=== PATIENT | female | born 1955 | race Two or more races ===

== ENCOUNTER 2024-11-20 09:35 | Outpatient (AMB) | payer MEDICARE, MEDICAID, SELFPAY ==
--- NOTE | 2024-11-20 10:02 | PD.ORTHCLVIS ---
Vital signs 11/20/24 10:04 Height 1.5 m Height Method Measured Weight 71.242 kg Weight Measurement Method Standing Scale BMI 31.7 BP 187/109 H Blood Pressure Source Automatic Cuff Blood Pressure Location Right Upper Arm Position Sitting Respiration 18 Pulse 93 Pulse Source Monitor Temp 97.9 F Temp Source Temporal Artery Scan Pulse Oximetry (%) 96 Oxygen Delivery Method Room Air Med/Allergies Allergies & Medications Allergies No Known Drug Allergies Allergy (Verified 11/20/24 10:05) Medication Reconciliation aspirin 81 mg tablet 81 mg PO QDAY 11/20/24 [History Confirmed 11/20/24] chlorthalidone 25 mg tablet 25 mg PO QDAY 11/20/24 [History Confirmed 11/20/24] gabapentin 300 mg capsule 300 mg PO QDAY 11/20/24 [History Confirmed 11/20/24] metformin 500 mg tablet 500 mg PO QDAY 11/20/24 [History Confirmed 11/20/24] metoprolol tartrate 25 mg tablet 25 mg PO QDAY 11/20/24 [History Confirmed 11/20/24] Exam Exam Patient is in no acute distress and is cooperative with the examination today. Breathing is nonlabored. Patient has a normal mood and affect. Bilateral extremities were evaluated and demonstrates sensation intact to light touch. Palpable pedal pulses are present. No significant edema is present. Bilateral hips were examined. The patient has no pain with log roll of the hips. Internal rotation to 30 degrees and external rotation to 30 degrees is painless. Negative FADIR. Right knee was examined today. The right knee is in reasonable alignment. Range of motion from 0-120 degrees. Knee is stable to varus and valgus as well as AP translation with <5mm. Patient has a negative McMurrays. There is no pain with patellofemoral compression and no crepitus noted. The knee is nontender to palpation. Left knee was examined today. The left knee is in varus alignment. Range of motion from 0-115 degrees. Knee is stable to varus and valgus as well as AP translation with <5mm. Patient has a negative McMurrays. There is no pain with patellofemoral compression and no crepitus noted. The knee is tender to palpation medially. X-rays of [facility] were reviewed. These are nonweightbearing films. Demonstrates complete joint space obliteration medially and laterally Assessment and Plan Problem List (1) Arthritis of left knee: Status: Acute Plan: Patient is a 69-year-old female with left knee pain and left knee arthritis. We discussed different treatment options. I would like to see what her hemoglobin A1c is to see if her diabetes is well-controlled. She has failed conservative treatment and we will offer total knee replacement if her A1c is well-controlled. Will also will get weightbearing x-rays Office Procedures GNS Level of Care Nursing/Assessment Patient Status: Initial/New Patient Nursing Assessment/Reassesment: Medication Reconciliation, Update PMH in EMR and Vital Signs Coordination of Care: Complex Care and Chronic Disease 1-5, Education Complex Pt/Fam, Consent,records obtained, informed consent, Lab and Imaging orders, Results/Orders obtained and Staff clarify orders Special Needs: Language special needs New Patient Charge New Patient Point Assignment: 0490 New Patient Point Charge: PLAYGROUND DIRECTOR Level 3 ([id number]) MA Intake Visit Data Collection New Patient or Established: New Patient (never been to [facility]) Reason for Visit:: bilateral knee injection Seen by Clinical Staff ONLY (RN/MA): No Verbal consent obtained for Telemed visit?: No Tracer Clerk Required: Yes PCP or OBGYN visit in last 3 months: Yes Hx Now: No Do You Feel Safe at Home: Yes Authorities Contacted: N/A Questionairres Past Medical History Past Medical History Have you ever been diagnosed with any of the following: Cardiology Problems Hypertension: Yes Respiratory Problems Smoking: No Smoking Cessation Counseling: No Smoking Exposure: No Tobacco Use: No Stomache/Intestinal Problems Obesity: Yes Endocrine Problems Diabetes Mellitus Type 1: Yes Subjective Visit Visit for: new patient and knee Immunization / Flu Flu Vaccine in the Last 12 Months: No Flu Vaccine Exclusion Criteria: No Exclusion Criteria History of Present Illness Chief complaint: bilateral knee injection Date of injury / onset of symptoms: 1.5 years Latrice is a 69-year-old female with left knee pain that has been ongoing for 2 years. She has had 4 injections in the past. She reports that the injections are not working for very long. She uses a cane because she reports her knees feel unstable. She has also tried anti-inflammatories. Personal History Red flag PMH: BMI BMI Counceling provided: Yes Pain Pain level (0-10): 10 Pain duration: all day Pain location: inside (medial), outside (lateral), anterior and posterior Pain quality: sharp, dull and aching Pain timing: night, increases with activity and stairs Associated signs & symptoms: numbness and stiffness Ambulatory data Ambulatory device: cane Treatments Number of previous injections: 3 Improvement with previous injections: No Number of Physical Therapy sessions: 0 Improvement with PT: No Improvement with NSAIDS: no Review of Systems Review of Systems: All systems negative unless otherwise noted in HPI.
[2024-11-20 10:04] VITALS: BP 187/109; PULSE 93; RESP 18; TEMP 36.6; O2SAT 96; BMI 31.7
--- NOTE | 2024-11-20 10:06 | XR_ITS ---
Examination: Bilateral knees 2 views Right lateral knee left lateral knee 2 views Bilateral axial knees single view TECHNIQUE: Bilateral AP knees standing single view, bilateral PA knees standing single view flexion Standing right lateral knee left lateral knee 2 views Bilateral axial knees single view Date and time: November 20, 2024 1016 hours INDICATIONS: Bilateral knee pain beginning 2 years ago FINDINGS: Prominent osteopenia Advanced right knee tricompartment osteoarthritis including severe narrowing lateral joint space Advanced left knee tricompartment osteoarthritis including severe narrowing medial joint space No fractures IMPRESSION: Bilateral advanced tricompartment osteoarthritis
== END 2024-11-20 10:24 | disposition home or self-care (01) ==
PROVIDERS: PCP Physician Assistant Medical; Referring Provider Physician Assistant Medical; Supervising Provider Orthopaedic Surgery Adult Reconstructive Orthopaedic Surgery; Visit Provider Orthopaedic Surgery Adult Reconstructive Orthopaedic Surgery
DX: M17.12 Unilateral primary osteoarthritis, left knee (principal); M25.562 Pain in left knee
CPT/HCPCS: 73564; 99203; G0463

== ENCOUNTER → 2024-11-20 | Outpatient (CLI) | payer MEDICARE, MEDICAID, SELFPAY ==
[2024-11-20 12:56] LABS: Glucose Estimated Average 126 mg/dL (80-131)
== END | disposition home or self-care (01) ==
PROVIDERS: PCP Family Medicine; Referring Provider Orthopaedic Surgery Adult Reconstructive Orthopaedic Surgery; Visit Provider Orthopaedic Surgery Adult Reconstructive Orthopaedic Surgery
DX: M17.12 Unilateral primary osteoarthritis, left knee (principal); R73.09 Other abnormal glucose
CPT/HCPCS: 36415; 83036

== ENCOUNTER 2024-12-06 12:54 | Outpatient (AMB) | payer MEDICARE, MEDICAID, SELFPAY ==
[2024-12-06 13:17] VITALS: BP 173/89; PULSE 85; RESP 19; TEMP 36.8; O2SAT 96; BMI 31.4
--- NOTE | 2024-12-06 13:17 | PD.ORTHCLVIS ---
Vital signs 12/06/24 13:17 Height 1.5 m Height Method Stated Weight 70.76 kg Weight Measurement Method Standing Scale BMI 31.4 BP 173/89 H Blood Pressure Source Automatic Cuff Blood Pressure Location Right Upper Arm Position Sitting Respiration 19 Pulse 85 Pulse Source Monitor Temp 98.2 F Temp Source Temporal Artery Scan Pulse Oximetry (%) 96 Oxygen Delivery Method Room Air Med/Allergies Allergies & Medications Allergies No Known Drug Allergies Allergy (Verified 12/06/24 13:27) Medication Reconciliation aspirin 81 mg tablet 81 mg PO QDAY 11/20/24 [History Confirmed 12/06/24] chlorthalidone 25 mg tablet 25 mg PO QDAY 11/20/24 [History Confirmed 12/06/24] gabapentin 300 mg capsule 300 mg PO QDAY 11/20/24 [History Confirmed 12/06/24] metformin 500 mg tablet 500 mg PO QDAY 11/20/24 [History Confirmed 12/06/24] metoprolol tartrate 25 mg tablet 25 mg PO QDAY 11/20/24 [History Confirmed 12/06/24] meloxicam 7.5 mg tablet 7.5 mg PO QDAY #45 tabs 12/06/24 [Rx] Exam Exam Patient is in no acute distress and is cooperative with the examination today. Breathing is nonlabored. Patient has a normal mood and affect. Bilateral extremities were evaluated and demonstrates sensation intact to light touch. Palpable pedal pulses are present. No significant edema is present. Bilateral hips were examined. The patient has no pain with log roll of the hips. Internal rotation to 30 degrees and external rotation to 30 degrees is painless. Negative FADIR. Right knee was examined today. The right knee is in reasonable alignment. Range of motion from 0-120 degrees. Knee is stable to varus and valgus as well as AP translation with <5mm. Patient has a negative McMurrays. There is no pain with patellofemoral compression and no crepitus noted. The knee is nontender to palpation. Left knee was examined today. The left knee is in varus alignment. Range of motion from 0-115 degrees. Knee is stable to varus and valgus as well as AP translation with <5mm. Patient has a negative McMurrays. There is no pain with patellofemoral compression and no crepitus noted. The knee is tender to palpation medially. Weight bearing xrays demonstrate significant joint space narrowing bilaterally Assessment and Plan Problem List (1) Degenerative arthritis of knee, bilateral: Status: Acute Plan: Patient is a pleasant 69-year-old female with bilateral knee pain and bilateral knee arthritis. We discussed nonoperative and operative options. She wants to proceed with continued injections at this time Recommend knee cortisone injections as patient would like to proceed with conservative treatment at this time. The risks and benefits of the procedure were reviewed with the patient and patient gave verbal consent to continue with the procedure. Procedure: performed by Dr. Cai Using sterile technique the Bilateral knees were thoroughly prepped with alcohol, and approximately 1 cc of Kenalog 40 mg/mL and 4 cc of 1% lidocaine was injected into each knee without resistance into the medial tibial femoral joint space. The patient tolerated the procedure. Advanced Care Planning Discussion Advance care planning discussed with:: patient Office Procedures GNS Level of Care Nursing/Assessment Patient Status: Established Patient Nursing Assessment/Reassesment: Medication Reconciliation, Update PMH in EMR and Vital Signs Coordination of Care: Complex Care and Chronic Disease 1-5, Education Complex Pt/Fam, Consent,records obtained, informed consent, Results/Orders obtained and Staff clarify orders Established Patient Charge Established Patient Point Assignment: 95 Established Patient Point Charge: EP Level 3 (80-115) Surgical Proc/IM SQ injection Major Surgical Procedure: Yes (knee bilateral injections ) Medication Given Medication Given Medication Given: Yes Documented Dose Given: 8 Route: Infiitration Medication Given Medication Given Medication Given: Yes Documented Dose Given: 2 Route: Infiitration Office Meds Xylocaine 10 mg/mL (1 %) injection solution Performing Provider: Marcin Cai MD Performing Location: [facility] Administered by: Marcin Cai MD on 12/06/24 13:30 Dose Route Admin Location Dispensed Lot Number Expiration Date [facility] Electrical Prospecting Operator 40 mL Infiltration 40 mL [id number] [employer] triamcinolone acetonide 40 mg/mL suspension for injection Performing Provider: Marcin Cai MD Performing Location: [facility] Administered by: Marcin Cai MD on 12/06/24 13:30 Dose Route Admin Location Dispensed Lot Number Expiration Date [facility] Electrical Prospecting Operator 80 mg intra-articular 2 mL [id number] CHAMP PROCTOR [place] Intake Visit Data Collection New Patient or Established: Established Patient (seen at [facility] within 3 years) Reason for Visit:: f/u knee xrays and injection Seen by Clinical Staff ONLY (RN/MA): No Verbal consent obtained for Telemed visit?: No Hydrochloric Acid Operator Required: Yes PCP or OBGYN visit in last 3 months: Yes Hx Now: No Do You Feel Safe at Home: Yes Authorities Contacted: N/A Questionairres Past Medical History Past Medical History Have you ever been diagnosed with any of the following: Cardiology Problems Hypertension: Yes Respiratory Problems Smoking: No Smoking Cessation Counseling: No Smoking Exposure: No Tobacco Use: No Stomache/Intestinal Problems Obesity: Yes Endocrine Problems Diabetes Mellitus Type 1: Yes Subjective Visit Visit for: new patient and knee Immunization / Flu Flu Vaccine in the Last 12 Months: No Flu Vaccine Exclusion Criteria: No Exclusion Criteria History of Present Illness Chief complaint: bilateral knee injection Date of injury / onset of symptoms: 1.5 years Latrice is a 69-year-old female with left knee pain that has been ongoing for 2 years. She has had 4 injections in the past. She reports that the injections are not working for very long. She uses a cane because she reports her knees feel unstable. She has also tried anti-inflammatories. Her hemoglobin a1c is 6.0 Personal History Red flag PMH: BMI BMI Counceling provided: Yes Pain Pain level (0-10): 10 Pain duration: all day Pain location: inside (medial), outside (lateral), anterior and posterior Pain quality: sharp, dull and aching Pain timing: night, increases with activity and stairs Associated signs & symptoms: numbness and stiffness Ambulatory data Ambulatory device: cane Treatments Number of previous injections: 3 Improvement with previous injections: No Number of Physical Therapy sessions: 0 Improvement with PT: No Improvement with NSAIDS: no Review of Systems Review of Systems: All systems negative unless otherwise noted in HPI.
== END 2024-12-06 13:41 | disposition home or self-care (01) ==
PROVIDERS: PCP Physician Assistant Medical; Referring Provider Physician Assistant Medical; Supervising Provider Orthopaedic Surgery Adult Reconstructive Orthopaedic Surgery; Visit Provider Orthopaedic Surgery Adult Reconstructive Orthopaedic Surgery
DX: M17.0 Bilateral primary osteoarthritis of knee (principal); M25.562 Pain in left knee; M25.561 Pain in right knee; I10 Essential (primary) hypertension; E10.9 Type 1 diabetes mellitus without complications
CPT/HCPCS: 20610; 99213; J3301; J3490; G0463

== ENCOUNTER 2025-04-11 13:38 | Outpatient (AMB) | payer MEDICARE, MEDICAID, SELFPAY ==
--- NOTE | 2025-04-11 14:05 | ORTHONT_ITS ---
Vital signs 04/11/25 14:21 Height 1.5 m Height Method Stated Weight 71.356 kg Weight Measurement Method Standing Scale BMI 31.6 BP 161/84 H Blood Pressure Source Automatic Cuff Blood Pressure Location Left Upper Arm Position Sitting Respiration 18 Pulse 89 Pulse Source Monitor Temp 98.3 F Temp Source Temporal Artery Scan Pulse Oximetry (%) 97 Oxygen Delivery Method Room Air Med/Allergies Allergies & Medications Allergies No Known Drug Allergies Allergy (Verified 04/11/25 14:23) Medication Reconciliation aspirin 81 mg tablet 81 mg PO QDAY 11/20/24 [History Confirmed 04/11/25] chlorthalidone 25 mg tablet 25 mg PO QDAY 11/20/24 [History Confirmed 04/11/25] gabapentin 300 mg capsule 300 mg PO QDAY 11/20/24 [History Confirmed 04/11/25] metformin 500 mg tablet 500 mg PO QDAY 11/20/24 [History Confirmed 04/11/25] metoprolol tartrate 25 mg tablet 25 mg PO QDAY 11/20/24 [History Confirmed 04/11/25] meloxicam 7.5 mg tablet 7.5 mg PO QDAY #45 tabs 12/06/24 [Rx Confirmed 04/11/25] Exam Exam Patient is in no acute distress and is cooperative with the examination today. Breathing is nonlabored. Patient has a normal mood and affect. Bilateral extremities were evaluated and demonstrates sensation intact to light touch. Palpable pedal pulses are present. No significant edema is present. Bilateral hips were examined. The patient has no pain with log roll of the hips. Internal rotation to 30 degrees and external rotation to 30 degrees is painless. Negative FADIR. Right knee was examined today. The right knee is in reasonable alignment. Range of motion from 0-120 degrees. Knee is stable to varus and valgus as well as AP translation with <5mm. Patient has a negative McMurrays. There is no pain with patellofemoral compression and no crepitus noted. The knee is nontender to palpation. Left knee was examined today. The left knee is in varus alignment. Range of motion from 0-115 degrees. Knee is stable to varus and valgus as well as AP translation with <5mm. Patient has a negative McMurrays. There is no pain with patellofemoral compression and no crepitus noted. The knee is tender to palpation medially. Weight bearing xrays demonstrate significant joint space narrowing bilaterally Assessment and Plan Problem List (1) Degenerative arthritis of knee, bilateral: Status: Acute Plan: Patient is a pleasant 69-year-old female with bilateral knee pain and bilateral knee arthritis. We discussed nonoperative and operative options. She wants to proceed with continued injections at this time Recommend knee cortisone injection as patient would like to proceed with conservative treatment at this time. The risks and benefits of the procedure were reviewed with the patient and patient gave verbal consent to continue with the procedure. Procedure: performed by Dr. Cai Using sterile technique the Right knee was thoroughly prepped with alcohol, and approximately 1 cc of Depo-Medrol 80mg/mL and 4 cc of 0.2% ropivacaine was injected without resistance into the medial tibial femoral joint space. The patient tolerated the procedure. Recommend knee cortisone injection as patient would like to proceed with conservative treatment at this time. The risks and benefits of the procedure were reviewed with the patient and patient gave verbal consent to continue with the procedure. Procedure: performed by Dr. Cai Using sterile technique the leftknee was thoroughly prepped with alcohol, and approximately 1 cc of Depo- Medrol 80mg/mL and 4 cc of 0.2% ropivacaine was injected without resistance into the medial tibial femoral joint space. The patient tolerated the procedure. Advanced Care Planning Discussion Advance care planning discussed with:: patient Office Procedures GNS Level of Care Nursing/Assessment Patient Status: Established Patient Nursing Assessment/Reassesment: Medication Reconciliation, Update PMH in EMR and Vital Signs Coordination of Care: Complex Care and Chronic Disease 1-5, Education Complex Pt/Fam, Consent,records obtained, informed consent, Results/Orders obtained and Staff clarify orders Special Needs: Language special needs Established Patient Charge Established Patient Point Assignment: 95 Established Patient Point Charge: EP Level 3 (80-115) Medication Given Medication Given Medication Given: Yes Documented Dose Given: 2 Route: Infiitration Medication Given Medication Given Medication Given: Yes Documented Dose Given: 8 Route: Infiitration Office Meds methylprednisolone acetate 80 mg/mL suspension for injection Performing Provider: Marcin Cai MD Performing Location: [facility] Administered by: Marcin Cai MD on 04/11/25 15:01 Dose Route Admin Location Dispensed Lot Number Expiration Date Pack age [facility] Pathology Teacher 160 mg intra-articular KNEE 2 mL [id number] 12/17/26 [address]-3 7 [id number] [employer] ropivacaine (PF) 2 mg/mL (0.2 %) injection solution Performing Provider: Marcin Cai MD Performing Location: [facility] Administered by: Marcin Cai MD on 04/11/25 15:01 Dose Route Admin Location Dispensed Lot Number Expiration Date Pack age [facility] Pathology Teacher 40 mL Infiltration KNEE 40 mL [id number] 07/19/27 60841-599-31 [id number] [facility] Intake Visit Data Collection New Patient or Established: Established Patient (seen at [facility] within 3 years) Reason for Visit:: f/u knee xrays and injection Seen by Clinical Staff ONLY (RN/MA): No Verbal consent obtained for Telemed visit?: No Road Mixer Operator Required: Yes PCP or OBGYN visit in last 3 months: Yes Hx Now: No Do You Feel Safe at Home: Yes Authorities Contacted: N/A Questionairres Past Medical History Past Medical History Have you ever been diagnosed with any of the following: Cardiology Problems Hypertension: Yes Respiratory Problems Smoking: No Smoking Cessation Counseling: No Smoking Exposure: No Tobacco Use: No Stomache/Intestinal Problems Obesity: Yes Endocrine Problems Diabetes Mellitus Type 1: Yes Subjective Visit Visit for: new patient and knee Immunization / Flu Flu Vaccine in the Last 12 Months: No Flu Vaccine Exclusion Criteria: No Exclusion Criteria History of Present Illness Chief complaint: bilateral knee injection Date of injury / onset of symptoms: 1.5 years Latrice is a 69-year-old female with left knee pain that has been ongoing for 2 years. She has had 4 injections in the past. She reports that the injections are not working for very long. She uses a cane because she reports her knees feel unstable. She has also tried anti-inflammatories. Her hemoglobin a1c is 6.0. The last injections provided over 3 months of relief and she would like new injections today Personal History Red flag PMH: BMI BMI Counceling provided: Yes Pain Pain level (0-10): 10 Pain duration: all day Pain location: inside (medial), outside (lateral), anterior and posterior Pain quality: sharp, dull and aching Pain timing: night, increases with activity and stairs Associated signs & symptoms: numbness and stiffness Ambulatory data Ambulatory device: cane Treatments Number of previous injections: 3 Improvement with previous injections: No Number of Physical Therapy sessions: 0 Improvement with PT: No Improvement with NSAIDS: no Review of Systems Review of Systems: All systems negative unless otherwise noted in HPI.
[2025-04-11 14:21] VITALS: BP 161/84; PULSE 89; RESP 18; TEMP 36.8; O2SAT 97; BMI 31.6
== END 2025-04-11 14:32 | disposition home or self-care (01) ==
PROVIDERS: PCP Physician Assistant Medical; Referring Provider Physician Assistant Medical; Supervising Provider Orthopaedic Surgery Adult Reconstructive Orthopaedic Surgery; Visit Provider Orthopaedic Surgery Adult Reconstructive Orthopaedic Surgery
DX: M25.562 Pain in left knee (principal); M25.561 Pain in right knee; M17.0 Bilateral primary osteoarthritis of knee; I10 Essential (primary) hypertension; E10.9 Type 1 diabetes mellitus without complications; Z79.84 Long term (current) use of oral hypoglycemic drugs; E66.9 Obesity, unspecified; Z68.31 Body mass index [BMI] 31.0-31.9, adult
CPT/HCPCS: 20610; 99213; J1010; J2795; G0463